=== PATIENT | female | born 1995 | race Caucasian/White ===

== ENCOUNTER 2018-09-29 16:56 | Emergency (ER) | payer OTHER ==
[~2018-09-29] VITALS: Ht 172.7 cm; Wt 64.9 kg
[2018-09-29 17:13] VITALS: BP 129/88
[2018-09-29] MEDS ORDERED: LIDOCAINE-MPF 1%, 5ML ONE (17:38)
[2018-09-29] MEDS ORDERED: LACT1CAP37 PO (17:50)
[2018-09-29] MEDS ORDERED: LIDOCAINE-MPF 1%, 5ML INFIL ONE (18:00)
[2018-09-29] MEDS ORDERED: BACITRACIN ZINC OINT 500U/GM, 0.9 GM ONE (18:06)
== END 2018-09-29 19:03 | disposition home or self-care (01) ==
LOC: ED 18:45
DX: S61.101A Unspecified open wound of right thumb with damage to nail, initial encounter (principal); X58.XXXA Exposure to other specified factors, initial encounter; Y93.89 Activity, other specified; Y92.009 Unspecified place in unspecified non-institutional (private) residence as the place of occurrence of the external cause; Y99.8 Other external cause status
CPT/HCPCS: 11760; 99284